=== PATIENT | male | born 1960 | race American Indian/Alaskan Native ===

== ENCOUNTER 2019-01-23 01:16 | Emergency (ER) | payer OTHER ==
[~2019-01-23] VITALS: Ht 165.1 cm; Wt 77.1 kg
[2019-01-23] MEDS ORDERED: Veetids 500500 MG PO (02:51)
== END 2019-01-23 03:18 | disposition home or self-care (01) ==
LOC: ER 01:16
DX: K08.89 Other specified disorders of teeth and supporting structures (principal)
CPT/HCPCS: 99282